=== PATIENT | male | born 1960 | race Caucasian/White ===

== ENCOUNTER 2019-04-17 22:48 | Observation (INO) ==
[2019-04-17] MEDS ORDERED: DUONEB (A & A) INH ONE (23:17)
[2019-04-17] MEDS ORDERED: TYLENOL PO ONE (23:17)
[2019-04-17] MEDS ORDERED: ZOFRAN IV ONE (23:38)
[2019-04-17 23:47] LABS: BASO# 0.03 X1000 (0.0-0.2); BASO% 0.4 % (0.0-0.8); EOS# 0.04 X1000 (0.0-0.7); EOS% 0.6 % (0.0-10.0); HEMATOCRIT 41.9 % (42.0-52.0); HEMOGLOBIN 14.6 g/dL (14.0-18.0); LYMPH# 1.88 X1000 (1.2-3.4); LYMPH% 27.8 % (20.5-51.1); MCH 31.7 PG (27-31); MCHC 34.8 g/dL (33-37); MCV 90.9 FL (81-99); MONO# 0.61 X1000 (0.11-0.59); MPV 9.3 FL (7.4-10.4); NEUT# 4.21 X1000 (1.4-6.5); NEUT% 62.2 % (42.2-75.2); PLT 209 X1000 (130-400); RBC 4.61 XMIL (4.7-6.1); RDW 12.6 % (11.5-14.5); WBC 6.77 X1000 (4.8-10.8)
[2019-04-17 23:54] LABS: INR 1.03; PROTIME 13.7 Seconds (11.0-16.0); PTT 26.9 Seconds (22.3-41.8)
[2019-04-18 00:31] LABS: ALB/GLOB RATIO 1.5; ALBUMIN 4.1 g/dL (3.5-5.0); CALCIUM 9.9 mg/dL (8.8-10.2); CREATININE 1.3 mg/dL (0.7-1.2); POTASSIUM 3.7 mmol/L (3.5-5.1); TOTAL BILIRUBIN 0.25 mg/dL (0.20-1.00); TOTAL PROTEIN 6.8 g/dL (6.3-8.3)
[2019-04-18] MEDS ORDERED: SOLU-MEDROL IV ONE (00:41)
--- NOTE | 2019-04-18 02:04 | EKG Report ---
Test Performed on : 04/17/2019 10:53:31 PM Test Reason : sob Blood Pressure : / mmHG Vent. Rate : 080 BPM Atrial Rate : 080 BPM P-R Int : 134 ms QRS Dur : 076 ms QT Int : 372 ms P-R-T Axes : 051 021 048 degrees QTc Int : 429 ms Sinus rhythm. with premature supraventricular complexes. Otherwise normal ECG No previous ECGs available Unconfirmed Result
--- NOTE | 2019-04-18 03:42 | PROVIDER DOCUMENTATION ---
This chart was entered by Geoffrey Echols Scribe, acting as scribe for Edson Spain MD. HPI-General Adult - General Chief Complaint: Shortness of Breath Stated Complaint: SOB Time Seen by Provider: 04/17/19 23:08 Source: patient, family Allergies/Adverse Reactions: Patient Allergies Allergy/AdvReac Type Severity Reaction Status Date / Time aspirin Allergy Severe ANAPHYLAXIS Verified 04/17/19 23:16 codeine Allergy Unknown Verified 04/17/19 23:16 lincomycin [From Lincocin] Allergy Unknown Verified 04/17/19 23:16 lorazepam [From Ativan] Allergy ANAPHYLAXIS Verified 04/17/19 23:16 meperidine [From Demerol] Allergy Unknown Verified 04/17/19 23:16 Penicillins AdvReac RASH Verified 04/17/19 23:16 prochlorperazine AdvReac Unknown Verified 04/17/19 23:16 [From Compazine] Sulfa (Sulfonamide AdvReac RASH Verified 04/17/19 23:16 Antibiotics) Home Medications: Home Medication List Medication Instructions Recorded Confirmed Last Taken Type Esomeprazole Magnesium [Nexium] 20 mg PO DAILY 04/17/19 04/17/19 Unknown History Ramipril 10 mg PO DAILY 04/17/19 04/17/19 Unknown History - History of Present Illness -Gen Adult Nature of Presenting Problems: 58 yom presents to the ed with c/o chest pains SOB, headache. pt states burning pain " someone is sitting on my chest , like its on fire." family states " [place] was in [place] going physical work and broke out into excessive sweat got dizzy." pt states " like throat is closing up." pt states saw pcp was diagnosed w/ Bronchitis & Sinusitis given Z-pack ,cough syrup, inhaler(pt states used at home tonight with no help) ." pt has hx of HNT, kidney stones. Location of Pain/Injury: reports: chest Pain Radiation: reports: no radiation Quality of Pain: reports: burning Severity: reports: mild Onset/Duration: reports: this evening Timing: reports: still present, constant Context/Activities at Onset: reports: none Modifying Factors: improves with: other (sitting up improves pains). worse with: breathing, coughing Associated Symptoms: reports: chest pain, cough (clear), diaphoresis (inte rmittent in ed), dizziness, headaches, sinus congestion/drainage, shortness of breath. denies: arm pain, back/neck pain, diarrhea, fever/chills, nausea, vomiting Similar Symptoms Previously?: No Recently seen or treated by another doctor?: Yes ( pcp) Review of Systems - Adult - REVIEW OF SYSTEMS - ADULT Constitutional: denies: chills, fever Eyes: reports: no symptoms reported Ears, Nose, Mouth & Throat: reports: see HPI, sinus problem. denies: ear pain, mouth swelling Cardiovascular: reports: see HPI, chest pain. denies: palpitations Respiratory: reports: see HPI, cough, shortness of breath. denies: dyspnea on exertion, wheezing Gastrointestinal: denies: constipation, diarrhea, nausea, vomiting Genitourinary: reports: no symptoms reported Musculoskeletal: reports: no symptoms reported Integumentary: reports: no symptoms reported Neurological: reports: see HPI, dizziness/vertigo, headache/migraines. denies: numbness, slurred speech Psychiatric: reports: no symptoms reported Endocrine: reports: no symptoms reported Hematologic/Lymphatic: reports: no symptoms reported Allergic/Immunologic: reports: no symptoms reported All Other Systems: Reviewed and Negative Past History - Adult - PAST MEDICAL HISTORY-ADULT Review of Records: reports: Old Records Reviewed, Nursing Assessment Review, Medications Reviewed, Social history reviewed & non-contributory. Major Childhood Illnesses: reports: denies history Cardiovascular: reports: HTN Respiratory: reports: denies history Gastrointestinal: reports: GERD Obstetrical/Gynecological: reports: denies history Genitourinary: reports: kidney stones Musculoskeletal: reports: denies history Neurological: reports: Seizures/Epilepsy (once) Psychiatric: reports: denies history Endocrine/Immune: reports: denies history Other Conditions: reports: denies history - PRIOR SURGERIES/PROCEDURES Surgical/Procedure History: reports: reviewed, not pertinent - IMMUNIZATION STATUS Childhood Immunizations: See Nurse Assessment Flu Vaccine: See Nurse Assessment - FAMILY HISTORY Family History: reviewed, not pertinent - SOCIAL HISTORY Smoking: denies Substance Use: denies Physical Exam-General - PHYSICAL EXAM-ADULT Initial Vital Signs Reviewed: Yes - CONSTITUTIONAL General Appearance: appears well, alert, mild distress - HEAD, EARS, NOSE, MOUTH & THROAT HENMT: pharynx normal (on exam drainage) - RESPIRATORY Respiratory: lungs clear, normal breath sounds. negative: chest non-tender (chest wall is tender w/ palpation) - CARDIOVASCULAR Cardiovascular: normal peripheral pulses, regular rate, rhythm - GASTROINTESTINAL (ABDOMEN) Abdominal Exam: normal bowel sounds, non tender, soft - NEUROLOGIC Neurologic: grossly normal, no motor/sensory deficits - PSYCHIATRIC Psych/Mental Status: normal mood/affect, normal thought content, normal thought process, oriented x 3 Progress - PLAN OF CARE/RESULTS Progress/Plan/Lab Results: Vital Signs - 8 hr 04/17/19 22:56 Temperature 98.3 F Pulse Rate 82 Respiratory Rate 40 H Blood Pressure 122/74 O2 Sat by Pulse Oximetry 98 Orders Category Date Time Status CHEST-1 VIEW [RAD] Stat Exams 04/17/19 23:09 Ordered CBC WITH ELECTRONIC DIFF [HEME] Stat Lab 04/17/19 23:09 Uncollected COMPREHENSIVE METABOLIC PANEL [CHEM] Stat Lab 04/17/19 23:09 Uncollected PRO B-NATRIURETIC PEPTIDE Stat Lab 04/17/19 23:09 Uncollected PT [PROTIME WITH INR] [COAG] Stat Lab 04/17/19 23:09 Uncollected PTT [COAG] Stat Lab 04/17/19 23:09 Uncollected TROPONIN T Stat Lab 04/17/19 23:09 Uncollected EKG [EKG] Stat Ther 04/17/19 22:50 Ordered Result Diagrams: 04/17/19 22:38 04/17/19 22:38 - REASSESSMENT Reassessment #1 Time Reassessed: 02:06 (pt still coughing ) - EKG 1 Time of EKG reading by physician:: 22:53 EKG Read and Signed by:: Edson Spain EKG Interpretation (*Must complete 3 of following elements*): Normal Rate: 80 Rhythm: sinus rhythm w/ premature supaventricular complexes [place]: normal QRS: normal IA Interval: normal ST Wave: normal - CT/MRI 1 CT Study: other (pulmanary arterogram) Impression: See EMR Report (Aneurysmal dilatation of the ascending thoracic aorta measuring 4.4 - 4.3 cm. No aortic dissection) - CONSULTS/PCP/HOSPITALIST Notification #1 *Consult/PCP/Hospitalist*: consult Time Discussed: 02:14 (consulting from finding of CT) #2 Consult: Dr Romero Time Discussed: 02:30 Reason/Comments: advised pt could follow up in office for aneurysm Consult Disposition: F/U in office #3 Consult: Dr Olvera Time Discussed: 03:41 Consult Disposition: Will see in ED, Admit Departure - Departure Date of Disposition Decision: 04/17/19 Time of Disposition Decision: 03:41 DIAGNOSIS: Chest pain, Thoracic aortic aneurysm Disposition: ADMITTED INPATIENT 09 Certified Medical Emergency: Emergent Condition: Fair Referrals and Follow-Ups: Adiel Guzmán MD [Primary Care Provider] - - Critical Care Note This patient required my direct & personal management of CC.: No Attestation - Physician/ WILBERT Attestation Patient care was provided by Advanced Practice Provider:: No The physician spent face to face time with patient:: Yes Advanced Practice Provider documentation review:: Supervising physician onsite and consulted in the evaluation and care of this patient. The physician did have a face to face encounter with the patient. This chart was documented by the indicated scribe, (Geoffrey Echols, Scribsurya) and accurately reflects the services I performed and decisions made by me, Edson Spain MD, as attested by the provider's signature.
[2019-04-18] MEDS ORDERED: ZOFRAN IV PRN (05:12)
[2019-04-18] MEDS ORDERED: TYLENOL PO PRN (05:12)
[2019-04-18] MEDS ORDERED: MORPHINE IV PRN ×2 (05:12→10:44)
[2019-04-18] MEDS ORDERED: NITROGLYCERIN SL PRN (05:12)
[2019-04-18] MEDS ORDERED: NS 1,000 ML IV ONE (05:25)
[2019-04-18] MEDS ORDERED: ZITHROMAX 500 MG/NS 500 MG/250 ML IVPB IV ONE (05:36)
[2019-04-18] MEDS ORDERED: TESSALON PO PRN (05:37)
--- NOTE | 2019-04-18 05:40 | Diag Imaging Result Doc PS360 ---
EXAM: CHEST-1 VIEW HISTORY: cp TECHNIQUE: Single view COMPARISON: None. FINDINGS: The lungs are well expanded. The heart is not enlarged. The vessels are not distended. There are no infiltrates. No effusion identified. IMPRESSION: Negative exam. Electronically signed by Tanner Fofana 04/18/2019 5:38 AM
[2019-04-18 07:23] LABS: AGAP 14; BUN 22 mg/dL (8-22); CALCIUM 10.1 mg/dL (8.8-10.2); CHLORIDE 102 mmol/L (98-107); CK PROFILE 39 U/L (24-204); COSMO 285; CREATININE 1.2 mg/dL (0.7-1.2); ESTIMATED GFR > 60; GLUCOSE 140 mg/dL (70-104); POTASSIUM 4.2 mmol/L (3.5-5.1); SODIUM 140 mmol/L (136-145); TCO2 24 mmol/L (25-35)
--- NOTE | 2019-04-18 07:26 | Diag Imaging Result Doc PS360 ---
EXAM: CT ANGIOGRM PULMONARY ARTERIES 04/18/2019 HISTORY: sob TECHNIQUE: This exam was performed using automated exposure control, adjustment of mA or kV according to patient size, and/or use of iterative reconstruction technique. COMMENT: 3-D MIPS were performed. There are no previous thoracic studies. Where possible comparison is made with the abdominal study of 01/16/2018. There are no filling defects in the pulmonary arteries. There is no evidence of aortic dissection. There is ectasia of the ascending thoracic aorta which measures over 4.5 cm in diameter. There is no evidence of acute pulmonary parenchymal disease. There is a calcified granuloma in the lateral right middle lobe. The regional skeleton is intact. IMPRESSION: No evidence of pulmonary emboli or acute pulmonary parenchymal disease. Ectasia of the ascending thoracic aorta. Electronically signed by Piero Lewis 04/18/2019 7:24 AM
[2019-04-18] MEDS: PRILOSEC PO SCH (09:25)
[2019-04-18] MEDS: DUONEB (A & A) INH SCH ×4 (10:42→21:17)
--- NOTE | 2019-04-18 10:42 | CARDIOLOGY CONSULTATION ---
DATE: 04/18/2019 REASON FOR CONSULTATION: Cardiology was consulted for chest pain. HISTORY OF PRESENT ILLNESS: Mr. Wells is a 58-year-old gentleman with history of gastroesophageal reflux disease, hypertension, was recently diagnosed to have bronchitis with sinusitis, was given Z-Daquan, cough syrup, and inhalers. This has been going on for the last week or so. The patient, however, was in [place], doing work with some people, when he broke out in chest pain with excessive sweating, got dizzy. He came to the emergency room, was admitted. His electrocardiogram revealed normal sinus rhythm. He was ruled out for myocardial infarction by cardiac enzymes. There were no ST-T changes to suggest ischemia or infarction. The patient also says that his chest wall is tender to touch. As far as his cough is concerned, it has improved. He underwent a CT scan when he came to the emergency room, which revealed no evidence of dissection or pulmonary embolism. Ascending aorta was dilated, aneurysmal at 4.5 cm. There was no dissection noted. REVIEW OF SYSTEMS: A 14-point review of systems was done. GI: There is no history of nausea, vomiting, diarrhea. There is no history of hematemesis or melena. Central Nervous System: No focal weakness to suggest a CVA or TIA. Genitourinary: There is no dysuria or hematuria. Respiratory: As above. HOME MEDICATIONS: Include omeprazole and ramipril. PAST MEDICAL HISTORY: Hypertension, gastroesophageal reflux disease. ALLERGIES: Include aspirin, which he has severe anaphylaxis to that. In addition, he is allergic to lorazepam, meperidine, penicillin, and sulfonamides. SOCIAL HISTORY: He denies smoking or illicit drug abuse. PHYSICAL EXAMINATION: Vital Signs: Blood pressure was 136/84. Cardiovascular: Normal jugular venous pressure. There is no thyromegaly. No carotid bruit. First and second heart sounds were heard. There is no S3, S4 gallop. Respiratory: Normal air entry. There are no crepitations or rhonchi. Abdomen: Soft, nontender. There was no guarding or rigidity. Bowel sounds were heard. Central Nervous System: Alert, was moving all 4 extremities. Extremities: No pedal edema. HEENT: Atraumatic, normocephalic. Pupils were equal and reacting to light. LABORATORY DATA: Sodium 140, potassium 4.2, BUN 22, creatinine 1.2. Cardiac enzymes were negative. WBC 6.7, hemoglobin 14.6, hematocrit 41, platelet count of 209,000. ASSESSMENT AND PLAN: Mr. Rashi Wells is a 58-year-old gentleman with history of hypertension, gastroesophageal reflux disease, recently diagnosed to have bronchitis, had chest pain associated with diaphoresis, and has tenderness in his chest wall. On examination, he has tenderness to third and fourth costochondral junction. This is suggestive of costochondritis. However, he broke out in a significant diaphoretic episode as well. CT scan was done, which revealed aneurysmal dilatation of his ascending aorta, measuring 4.5 cm. There was no dissection noted. RECOMMENDATIONS: 1. Would recommend tight control of his blood pressure. He is on ramipril. Will continue with ramipril. 2. Will get an echocardiogram to assess cardiac and valvular function. 3. Will get a Cardiolite stress test to assess for and rule out ischemia. Thank you for the consult. Will follow hospital course. cc: Ramiro Herrera MD
--- NOTE | 2019-04-18 13:55 | ECHO REPORT ---
ORDER DATE: 04/18/2019 INDICATIONS: Chest pain. FINDINGS: 1. The right atrium is poorly visualized but probable normal in size. 2. Mild tricuspid regurgitation. RV systolic pressure of 30. 3. Limited visualization of the right ventricle but appears normal in size. Some views would suggest mild reduction in RV systolic function. 4. Mild pulmonic insufficiency. 5. Normal left atrial size with a volume index of 18.6. 6. Normal mitral valve prolapse. Mild mitral regurgitation. No evidence of mitral stenosis. 7. Normal LV size. End-diastolic dimension of 4.5. Normal wall thicknesses with a posterior and interventricular septal wall thickness of 1.1 cm each. Normal LV systolic function. Estimated EF of 60% to 65% with normal wall motion. 8. Aortic valve opens well. It is trileaflet. No evidence of stenosis or insufficiency. 9. Aorta appears normal visualized segments. 10. No pericardial effusion seen. cc: MD Dre Leung CRNP
[2019-04-18] MEDS ORDERED: LEXISCAN ONE (14:36)
--- NOTE | 2019-04-18 16:40 | Diag Imaging Result Document ---
PROCEDURE NAME: MYOCARDIAL PERF SCAN, STR/REST - 04/18/2019 INDICATION: Chest pain. PROCEDURES PERFORMED: 1. Lexiscan stress. 2. One-day stress rest myocardial perfusion imaging. PROCEDURE FINDINGS: 1. Baseline EKG shows sinus. 2. Lexiscan stress did not demonstrate any clear evidence of ischemic related EKG changes or significant arrhythmias. PERFUSION IMAGING RESULTS: 1. No evidence of abnormal extracardiac uptake. 2. TID ratio is 1.12. 3. Perfusion imaging demonstrates normal homogenous uptake of radiotracer throughout the myocardial segments. No evidence of stress-related defects. 4. Normal ejection fraction of 78%. End-diastolic volume of 92, end-systolic volume 20. Normal wall motion. cc: MD Shelbi Leung PA
[2019-04-19] MEDS: DUONEB (A & A) INH SCH ×2 (03:32→10:46)
[2019-04-19] MEDS: PRILOSEC PO SCH (06:18)
[2019-04-19 12:09] VITALS: BP 121/67
--- NOTE | 2019-04-19 15:20 | HISTORY AND PHYSICAL ---
CHIEF COMPLAINT: Shortness of breath and chest pain. HISTORY OF PRESENT ILLNESS: This is a 58-year-old male who has had chest pain and shortness of breath as well as a headache. He states that it is a burning pain, feels as if someone is sitting on his chest, like it is on fire. 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 He broke out into an excessive sweat, got dizzy. Patient states that he felt almost like his throat was closing up. He could not cough. He has been taking azithromycin for sinusitis and bronchitis. He felt as if he was doing better. He was getting ready to go back to work today but had the incident while helping people move. Has a history of kidney stones and hypertension. Chest x-ray was clear. EKG showed sinus rhythm with some PVCs. A CT angiogram was completed which showed an ascending thoracic aorta aneurysm measuring 4.4 cm. No aortic dissection was noted. DR. Romero was consulted. I believe he is a cardiothoracic surgeon at [facility], was consulted about the aneurysm. Said that he could follow up for the aneurysm in the office. The patient will be admitted for chest pain. PAST MEDICAL HISTORY: Seizure disorder. No seizure since 18. Kidney stones, hypertension. PREVIOUS SURGICAL HISTORY: Kidney stone removal. FAMILY HISTORY: Mother had breast cancer. Father had COPD and emphysema, also had coronary artery disease. SOCIAL HISTORY: No tobacco, alcohol or illicit drugs. ALLERGIES: Anaphylactic reaction to aspirin and Ativan. Allergic to codeine, lincomycin, meperidine, penicillin causing a rash, Compazine and sulfa antibiotics causing a rash. HOME MEDICATIONS: Ramipril 10 mg p.o. daily and Nexium 20 mg p.o. daily. REVIEW OF SYSTEMS: Pertinent positives listed above in the HPI. Fourteen-point review of systems completed. Patient complains of a productive cough with clear sputum. All other systems were reviewed and found to be negative. PHYSICAL EXAMINATION: VITAL SIGNS: Temperature 98.3, pulse 77, respirations 20, blood pressure 137/90, oxygen saturation 96% to 98% on room air. GENERAL: Pleasant 58-year-old male lying in the ER stretcher, answers all questions appropriately. He is alert and oriented times 3 in no acute distress. HEENT: Head is atraumatic, normocephalic. Pupils equal, round, reactive to light. Extraocular eye movement is intact. Sclera is anicteric. Conjunctiva is pink. Oral mucosa is moist. Postnasal drainage noted on the pharynx. No edema or erythema. CARDIAC: S1, S2 appreciated. No murmurs, gallops or rubs. LUNGS: Clear to auscultation bilaterally. No rhonchi, wheezes or rales. Symmetric rise and fall with respirations. ABDOMEN: Soft, nondistended, nontender. Bowel sounds present all 4 quadrants, normoactive. No pulsatile mass. No organomegaly. EXTREMITIES: No clubbing, cyanosis or edema. Two-plus pedal pulses bilaterally. GENITOURINARY: No bladder distention. Patient voids. Otherwise deferred. NEUROLOGICAL: Alert and oriented times 3. Cranial nerves 2 through 12 grossly intact. DIAGNOSTIC DATA: CT showed an ascending thoracic aortic aneurysm 4.4 cm. No aortic dissection. Chest x-ray: No acute abnormality. EKG: Normal sinus rhythm with PVCs, rate of 80. LABORATORY DATA: WBC 6.77. Hemoglobin 14.6. Hematocrit 41.9. Platelet count 209. Sodium 142. Potassium 3.7. Chloride 102. Carbon dioxide 24. BUN 26. Creatinine 1.3. Glucose 108. Troponin less than 0.010. ASSESSMENT: 1. Chest pain, rule out acute myocardial infarction. 2. Ascending thoracic aortic aneurysm. 3. Acute kidney injury. 4. Bronchitis. PLAN: Admit patient to the medical floor. Consult Cardiology related to chest pain and aneurysm. Patient was told he will need to follow related to aneurysm. Trend cardiac enzymes. We will give DuoNebs, cough medication. Patient also has hypertension. We will hold his ramipril related to his acute kidney injury. He is normotensive at this time. We will continue DuoNebs q.6 hours, morphine as needed for pain. Further recommendations per patient clinical course. Dictated by MICHAEL Blanco for Dwight Olvera MD I have performed a face to face diagnostic evaluation. Labs/ Xray- reviewed, Exam- Chest- rhonchi, CV- regular. A/P- Chest Pain- Admit, Cardiac work up. Trend cardiac enzymes. Dr. Olvera cc: MICHAEL Blanco MD [facility]
--- NOTE | 2019-04-20 13:49 | DISCHARGE SUMMARY ---
ADMISSION DATE: 04/17/2019 DISCHARGE DATE: 04/19/2019 DISCHARGE DIAGNOSES: 1. Chest pain, likely due to costochondritis. 2. Ascending thoracic aortic aneurysm. 3. Acute kidney injury, resolved. 4. Dyslipidemia. PROCEDURES PERFORMED: Chest x-ray dated 04/17/2019. Impression: Negative exam. Pulmonary arteriogram dated 04/18/2019. Impression: No evidence of pulmonary emboli or acute pulmonary parenchymal disease. Ectasia of the ascending thoracic aorta. Echocardiogram dated 04/18/2019. Ejection fraction of 60 to 65 percent with normal wall motion. Some views would suggest mild reduction in right ventricular systolic function. A stress test dated 04/18/2019. Impression: No evidence of abnormal extracardiac uptake. Perfusion imaging demonstrates normal homogeneous uptake of radiotracer throughout the myocardial segments. No evidence of stress related defect. Normal ejection fraction of 78%, end-diastolic volume 92, end-systolic volume 20, normal wall motion. Baseline EKG shows sinus. Lexiscan stress did not demonstrate any clear evidence of ischemic-related electrocardiogram changes or significant arrhythmia. CONSULTS: Cardiology department. HOSPITAL COURSE: A 58-year-old, male who presented to the emergency department and was admitted on 04/17/2019 due to chest pain, shortness of breath, as well as headache. The pain is burning and he states that it is like somebody sitting on his chest, like he is on fire. As per the patient, he was working in [place], helping some people to move furniture. He broke out into an excessive sweat and got dizzy. The patient stated that he felt almost like his throat was closing up and he could not cough. He has been taking azithromycin for sinusitis and bronchitis. Chest x-ray was clear. EKG shows normal sinus rhythm with some PVCs. CT angiogram was completed which showed an ascending thoracic aortic aneurysm measuring 4.4 cm. No aortic dissection was noted. It looks like they called the cardiothoracic surgeon at [facility] and he recommended to follow up as an outpatient. Actually, cardiology department evaluated this patient during this hospitalization. They did a stress test that was completely normal and they will follow up this patient as an outpatient, and they will decide whether or not this patient needs to be seen by a cardiothoracic surgeon. The only medication that we are going to prescribe is, for now, Lipitor due to his increased cholesterol level but he did not have signs of ischemia or any other problems. Dr. Herrera evaluated this patient. Echocardiogram did not show any major problems. Probably mild diastolic dysfunction on some views. On my physical exam today, this patient showed some thoracic tenderness throughout but he is feeling much better. The pain was on the anterior chest, probably costochondritis Albert's costochondritis or muscle related. Since all the lab work and images were normal, we are going to discharge this patient with a followup with Dr. Herrera in 1 month. At the moment of discharge, this patient was in a stable medical condition, tolerating p.o., and ambulating, normal vital signs. PHYSICAL EXAMINATION: Vital Signs: Temperature 98 degrees, pulse 70, respiratory rate 21, blood pressure 121/67, oxygen saturation 97% on room air. HEENT: Head normocephalic. No trauma. PERRLA. Neck: Supple. No JVD. No masses. Central trachea. Chest: Clear to auscultation. No wheezing. No rales. Tenderness to palpation at the level of the anterior part of the chest, especially sternal area and parasternal area. Abdomen: Soft, nontender, nondistended. No hepatosplenomegaly. Extremities: No edema, no clubbing, no cyanosis. Neurological Examination: The patient is alert and oriented x3. No focal deficits. LABORATORY DATA: From yesterday, sodium 140, potassium 4.2, chloride 102, bicarbonate 24, BUN 22, creatinine 1.2, glucose 140, calcium 10.1. Troponins negative x3. DISCHARGE MEDICATIONS: 1. Atorvastatin 20 mg p.o. at bedtime. 2. Nexium 20 mg p.o. daily. 3. Ramipril, which is one of his home medications, 10 mg p.o. daily. cc: Alexander Chamberlain MD
== END 2019-04-19 14:47 | disposition home or self-care (01) ==
LOC: ED 22:48 → 3N 04-18 06:14 → SUATTDRO 04-18 06:14 → INTOOBSV 04-18 06:14
PROVIDERS: ATTEND Internal Medicine